=== PATIENT | female | born 1950 | race Caucasian/White ===

== ENCOUNTER 2020-09-17 11:07 | Day surgery (SDC) | payer OTHER ==
[2020-09-17] MEDS ORDERED: Sodium Chloride 0.9(Preservative Free) 10 ML IJ ONE (11:08)
[2020-09-17] MEDS ORDERED: Depo-Medrol 40 MG/ML IM ONE (11:08)
[2020-09-17] MEDS ORDERED: DIPRIVAN 200 MG/20 ML IV ONE (12:55)
--- NOTE | 2020-09-17 15:32 | XRAY ---
Indication: Right L4-S1 transforaminal SUZI. Intraoperative fluoroscopy provided for 23 seconds. 2 digital spot images submitted for interpretation demonstrates posterior needle tips projecting over the expected right L4 and L5 nerve roots. Small amount of contrast injected for needle tip placement. Correlate with intraoperative findings/report.
[2020-09-17] MEDS ORDERED: Lactated Ringers 1,000 ML IV ONE (15:55)
--- NOTE | 2020-09-17 16:35 | XRAY ---
23 seconds fluoroscopy time in surgery for right L4-S1 transforaminal SUZI.
== END 2020-09-17 13:20 | disposition home or self-care (01) ==
LOC: SDC-PAIN 11:07
PROVIDERS: ATTEND Psychiatry & Neurology Pain Medicine
DX: M54.16 Radiculopathy, lumbar region (principal); Z79.899 Other long term (current) drug therapy
CPT/HCPCS: 64483; 64484; 72100; 77003; J1030; J2704; Q9966

== ENCOUNTER 2021-09-16 10:07 | Day surgery (SDC) | payer OTHER ==
[2021-09-16] MEDS ORDERED: Depo-Medrol 40 MG/ML IM ONE (10:08)
[2021-09-16] MEDS ORDERED: Sodium Chloride 0.9(Preservative Free) 10 ML IJ ONE (10:08)
[2021-09-16] MEDS ORDERED: DIPRIVAN 200 MG/20 ML IV ONE (12:41)
--- NOTE | 2021-09-16 13:42 | XRAY ---
Indication: Bilateral L4-S1 transforaminal SUZI. Intraoperative fluoroscopy provided for 32 seconds. 5 digital spot images submitted for interpretation demonstrate posterior needle tips projecting over the expected right L4 and L5 nerve roots. Small amount of contrast injected for needle tip placement. Correlate with intraoperative findings/report.
--- NOTE | 2021-09-16 14:48 | XRAY ---
32 seconds fluoroscopy time in surgery for right L4-S1 transforaminal SUZI.
== END 2021-09-16 13:00 | disposition home or self-care (01) ==
LOC: SDC-PAIN 10:07
PROVIDERS: ATTEND Psychiatry & Neurology Pain Medicine
DX: M47.816 Spondylosis without myelopathy or radiculopathy, lumbar region (principal); Z79.899 Other long term (current) drug therapy
CPT/HCPCS: 64483; 64484; 72100; 77003; J1030; J2704; Q9966

== ENCOUNTER 2023-01-27 14:49 | Day surgery (SDC) | payer OTHER ==
[2023-01-27] MEDS ORDERED: XYLOCAINE-MPF 1% 5ML SDV IJ ONE (14:50)
[2023-01-27] MEDS ORDERED: Sodium Chloride 0.9(Preservative Free) 10 ML IJ ONE (14:50)
[2023-01-27] MEDS ORDERED: Decadron 4 MG INJ IV ONE (14:50)
[2023-01-27] MEDS ORDERED: Lactated Ringers 1,000 ML IV ONE (15:57)
--- NOTE | 2023-01-27 17:18 | XRAY ---
Indication: Right L4-S1 transforaminal SUZI. Intraoperative fluoroscopy provided for 39 seconds. 8 digital spot image submitted for interpretation demonstrates posterior needle tips projecting over the expected right L4 and L5 nerve roots. Small amount of contrast injected for needle tip placement. Correlate with intraoperative findings/report.
--- NOTE | 2023-01-28 11:51 | XRAY ---
39 seconds of fluoroscopy was used in surgery for a right L4-S1 transforaminal SUZI.
== END 2023-01-27 17:15 | disposition home or self-care (01) ==
LOC: SDC-PAIN 14:49
PROVIDERS: ATTEND Psychiatry & Neurology Pain Medicine
DX: M54.16 Radiculopathy, lumbar region (principal)
CPT/HCPCS: 64483; 64484; 72100; 77003; J1100; Q9966